=== PATIENT | female | born 1985 | race Caucasian/White ===

== ENCOUNTER 2021-08-27 20:43 | Emergency (ER) | payer OTHER, SELFPAY ==
[2021-08-27 21:12] VITALS: BP 123/80; PULSE 115; RESP 18; TEMP 37.4; O2SAT 100
--- NOTE | 2021-08-27 21:15 | ED.DENTAL ---
HPI - Dental/Oral General Chief complaint: Dental/Oral Stated complaint: fever, dental pain Time Seen by Provider: 08/27/21 21:20 History of Present Illness HPI Narrative: 35-year-old female presents to the emergency room with complaints of left lower molar pain and perimandibular swelling for 2 weeks. Patient states that she has pain with mastication, and is sensitive to hot and cold changes. Patient is also complaining of generalized body aches, and a new onset of fever. Patient denies any URI symptoms chest pain, shortness of breath, abdominal pain, nausea vomiting or diarrhea. Related Data Home Medications Medication Instructions Recorded Confirmed alcohol swabs pad TOPICAL 08/27/21 celecoxib mg 08/27/21 duloxetine mg PO 08/27/21 liraglutide [Victoza 2-Benson] mg SUBCUT 08/27/21 omeprazole 08/27/21 pen needle, diabetic [TRUEplus Pen 08/27/21 08/27/21 Needle] pregabalin 08/27/21 spironolactone 08/27/21 Allergies Allergy/AdvReac Type Severity Reaction Status Date / Time latex Allergy Mild Other Verified 08/27/21 21:43 morphine Allergy Mild Other Verified 08/27/21 21:43 Penicillins Allergy Mild Other Verified 08/27/21 21:43 tramadol Allergy Unknown Stopped Verified 08/27/21 21:43 Breathing Review of Systems Review of Systems: CONSTITUTIONAL: Reports fever and chills EYES: Denies visual changes, redness, or discharge. ENT: Reports lower molar pain, left mandibular pain CARDIOVASCULAR: Denies chest pain, palpitations, or edema. RESPIRATORY: Denies cough or dyspnea. GASTROINTESTINAL: Denies abdominal pain, nausea, vomiting, or diarrhea. GENITOURINARY: Denies dysuria or hematuria. SKIN: Denies rash or itching. MUSCULOSKELETAL: Denies back pain, joint pain, or myalgia. NEUROLOGIC: Denies headache, numbness, dizziness, or weakness. PSYCHIATRIC: Denies anxiety or depression. [facility] Social History Social History Smoking status: Current every day smoker Gender identity (if verbalized by the patient): Female Course Vital Signs Vital signs: Vital Signs Temperature 37.4 C 08/27/21 21:12 Pulse Rate 115 H 08/27/21 21:12 Respiratory Rate 18 08/27/21 21:12 Blood Pressure 123/80 08/27/21 21:12 Pulse Oximetry 100 08/27/21 21:12 Temperature 36.9 C 08/27/21 21:38 Pulse Rate 115 H 08/27/21 21:12 Respiratory Rate 18 08/27/21 21:12 Blood Pressure 123/80 08/27/21 21:12 Pulse Oximetry 100 08/27/21 21:12 Discharge Plan Discharge Clinical Impression: Toothache, Dental caries Patient Disposition: Home, Self-Care Condition: Stable Instructions: Antibiotic Form, Toothache (ED) Prescriptions: New clindamycin HCl 300 mg capsule 300 mg PO Q8H 10 Days Qty: 30 RF: 0 No Action celecoxib 200 mg capsule RF: 0 spironolactone 100 mg tablet RF: 0 omeprazole 40 mg capsule,delayed release(DR/EC) RF: 0 alcohol swabs Pads, Medicated TOPICAL RF: 0 duloxetine 60 mg capsule,delayed release(DR/EC) PO RF: 0 pregabalin 75 mg capsule RF: 0 Victoza 2-Benson 0.6 mg/0.1 mL (18 mg/3 mL) pen injector SUBCUT RF: 0 (DME) pen needle, diabetic [TRUEplus Pen Needle] 32 gauge x 5/32 needle MISCELLANEOUS RF: 0 montelukast [Singulair] 10 mg tablet 10 mg PO DAILY Qty: 10 RF: 0 Follow-up/Referrals: UNKNOWN,DOCTOR [Non-Staff] - Stand Alone Forms: Work/School Release IP Time of Disposition: 21:54
[2021-08-27 21:38] VITALS: TEMP 36.9
[2021-08-27] MEDS: CLINDAMYCIN HCL 150 MG CAP 300 MG PO (22:05)
[2021-08-27 22:16] VITALS: TEMP 36.9
== END 2021-08-27 22:18 | disposition home or self-care (01) ==
PROVIDERS: Emergency Provider Nurse Practitioner Family; PCP Family Medicine
DX: K02.9 Dental caries, unspecified (principal); F17.200 Nicotine dependence, unspecified, uncomplicated
CPT/HCPCS: 73140; 99283; A9270

== ENCOUNTER 2022-07-28 10:45 | Emergency (ER) | payer BC, MEDICAID, SELFPAY ==
--- NOTE | ~2022-07-28 | XR_ITS ---
EXAMINATION: XR ankle RT min 3V INDICATION: Right ankle pain TECHNIQUE: Four views of the right ankle are obtained. COMPARISON: 09/12/2013 FINDINGS: There is soft tissue swelling of ankle. A punctate heterotopic ossification is seen at the distal tip of the lateral malleolus. Bone alignment is normal. A plantar calcaneal enthesophyte is no magaly. There is chronic heterotopic ossification lateral to the cuboid. IMPRESSION: 1. Ankle soft tissue swelling with probable avulsion injury of the lateral malleolus. Reviewed, dictated and finalized at location A. IMPRESSION: 1. Ankle soft tissue swelling with probable avulsion injury of the lateral mall eolus.
[2022-07-28 10:55] VITALS: BP 126/84; PULSE 88; RESP 20; TEMP 36.2; O2SAT 100
[2022-07-28 11:14] VITALS: BP 137/106; O2SAT 100
[2022-07-28 11:16] VITALS: BP 115/90; PULSE 78; RESP 16; O2SAT 100
[2022-07-28] MEDS: SODIUM CHLORIDE 0.9% IV 1,000 ML 999 ML IV CONT (11:43)
[2022-07-28] MEDS: HYDROcodone/acetaminophen (*CRX) 5-325 MG TABLET 1 TAB PO (11:44)
[2022-07-28 11:59] LABS: Basophils Absolute Auto 0.1 K/mm3 (0.0-0.1); Basophils Percent Auto 0.4 % (0.2-1.2); Eosinophils Absolute Auto 0.1 K/mm3 (0-0.3); Eosinophils Percent Auto 0.8 % (0-4.4); Hematocrit 38.6 % (37.0-47.0); Hemoglobin 13.5 g/dL (12.0-15.0); Immature Granulocyte Absolute 0.15 K/mm3 (0.00-0.031); Immature Granulocyte Percent A 0.9 % (0-0.5); Lymphocytes Absolute Auto 2.45 K/mm3 (0.9-3.2); Lymphocytes Percent Auto 14.8 % (18.3-44.2); Mean Corpuscular Hemoglobin 29.3 pg (26-34); Mean Corpuscular Volume 83.9 fl (80-100); Mean Platelet Volume 10.2 fl (7.4-10.4); Monocytes Absolute Auto 1.2 K/mm3 (0.1-0.6); Monocytes Percent Auto 7.2 % (2.6-8.5); Neutrophils Absolute Auto 12.6 K/mm3 (1.3-6.7); Neutrophils Percent Auto 75.9 % (45.5-73.1); Platelet Count Result 331 k/mm3 (150-375); Red Cell Distribution Width 13.1 % (11.5-14.5); White Blood Count 16.6 K/mm3 (4.5-10.0)
[2022-07-28 12:12] LABS: Anion Gap 9 mmol/L (8-16); Blood Urea Nitrogen 13 mg/dL (7-17); Calcium 8.7 mg/dL (8.4-10.2); Carbon Dioxide 27 mmol/L (22-30); Chloride 100 mmol/L (98-107); Estimated CRCL calculation 136 ml/min; Estimated Glomerular Filt Rate > 60; Glucose 107 mg/dL (65-110); Potassium 3.6 mmol/L (3.4-5.0); Sodium 136 mmol/L (137-145)
[2022-07-28 12:16] VITALS: BP 101/68; PULSE 87; RESP 18; O2SAT 100
--- NOTE | 2022-07-28 12:26 | ED.GENADULT ---
HPI - General Adult General Chief complaint: Unspecified Stated complaint: Rash and difficulty weight bearing Time Seen by Provider: 07/28/22 11:12 History of Present Illness HPI narrative: Patient is a 36-year-old female who presents ER with rash. It is located over her feet and hands. On the hands it includes the palms but she does not have sole involvement. She has numbness and tingling that is occurring. She has pain in her feet when she ambulates. This occurred 2 days ago. She reports 4 days ago she began having fever with sore throat. Mild cough. 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 No chest pain or chest pressure. Patient also reports 1 week ago she was seen in ER for some shortness of breath and anxiety and received a steroid injection. Patient denies exposure to ticks. Denies concern for STI. Related Data Home Medications Medication Instructions Recorded Confirmed alcohol swabs pad topical 08/27/21 12/06/21 celecoxib 200 mg capsule mg 08/27/21 12/06/21 duloxetine 60 mg capsule,delayed mg PO 08/27/21 12/06/21 release liraglutide 0.6 mg/0.1 mL (18 mg/3 mg subcut 08/27/21 12/06/21 mL) subcutaneous pen injector ([employer] 2-Benson) omeprazole 40 mg capsule,delayed 08/27/21 12/06/21 release pen needle, diabetic 32 gauge x 08/27/21 12/06/21 (TRUEplus Pen Needle) pregabalin 75 mg capsule 08/27/21 12/06/21 spironolactone 100 mg tablet 08/27/21 12/06/21 albuterol sulfate 90 mcg/actuation g inhalation 12/06/21 12/06/21 aerosol inhaler Allergies Allergy/AdvReac Type Severity Reaction Status Date / Time latex Allergy Mild Other Verified 07/28/22 11:19 morphine Allergy Mild Other Verified 07/28/22 11:19 Penicillins Allergy Mild Other Verified 07/28/22 11:19 tramadol Allergy Unknown Stopped Verified 07/28/22 11:19 Breathing venlafaxine Allergy Confusion Verified 07/28/22 11:21 Review of Systems Review of Systems: All systems reviewed & are unremarkable except as noted in HPI and below Constitutional: Constitutional: Reports chills, Reports fever(s) and Reports weakness ENT: Denies mouth lesions and Reports sore throat Cardiovascular: Cardiovascular: Denies chest pain, Denies radiating jaw, neck or arm pain and Denies palpitations Respiratory: Respiratory: Denies cough, Denies dyspnea and Denies wheezing Gastrointestinal: Gastrointestinal: Denies abdominal pain, Denies nausea and Denies vomiting Integumentary/Breasts: Skin/Breast: Reports pruritus, Reports erythema, Reports rash, Denies skin ulcer and Denies sores Neurologic: Reports tingling PMFSH Past Medical History Medical History (Updated 07/28/22 @ 13:19 by Aryan Mesa MD) Anxiety Asthma GERD (gastroesophageal reflux disease) Surgical History Surgical History (Updated 07/28/22 @ 12:31 by Aryan Mesa MD) No pertinent past surgical history Social History Social History Smoking status: Former smoker Alcohol intake: never Substance use: never Lack of Transportation: No Lack of Food: Never True Current Housing: I Have Housing Concerned About Future Housing: No Difficulty Paying Gas/Electric Bills: No Difficulty Paying for Meds: No Currently Unemployed: No Education: High School Diploma/GED Difficulty w/ Childcare or Family Care: No Living arrangements: with family Gender identity (if verbalized by the patient): Female Exam Narrative: GENERAL: Well-appearing, well-nourished, and in no acute distress. HEAD: Normocephalic, atraumatic. EYES: PERRL and EOMI. ENT: Mucous membranes moist. Mild pharyngeal erythema without ulcerations. CHEST: Clear to auscultation. No respiratory distress. HEART: Regular rate and rhythm. Normal peripheral pulses. EXTREMITIES: Normal range of motion. No edema. SKIN: Warm, dry. Maculopapular rash to the distal arms and legs. Elbow down to h
[2022-07-28 13:15] VITALS: O2SAT 100
== END 2022-07-28 13:59 | disposition home or self-care (01) ==
PROVIDERS: Emergency Provider Emergency Medicine; PCP Nurse Practitioner Women's Health
DX: B08.4 Enteroviral vesicular stomatitis with exanthem (principal); S82.61XA Displaced fracture of lateral malleolus of right fibula, initial encounter for closed fracture; J45.909 Unspecified asthma, uncomplicated; K21.9 Gastro-esophageal reflux disease without esophagitis; Z79.85 Long-term (current) use of injectable non-insulin antidiabetic drugs; Z87.891 Personal history of nicotine dependence; X50.9XXA Other and unspecified overexertion or strenuous movements or postures, initial encounter
CPT/HCPCS: 36415; 73610; 80048; 85025; 96360; 96361; 99283; 99284; A9270; J7030

== ENCOUNTER 2023-12-28 15:00 | Emergency (ER) | payer OTHER, SELFPAY ==
--- NOTE | ~2023-12-28 | XR_ITS ---
XR chest 2V Ordering provider: Aryan Mesa MD History: 38 years Female with . chest pain . Comparison: April 29, 2019 FINDINGS: MEDIASTINUM: The cardiac silhouette is not enlarged. LUNGS: No infiltrates, effusions or pneumothorax. OTHER: No free air under the diaphragm. IMPRESSION: No acute cardiopulmonary pathology. Reviewed, dictated and finalized at location A.
[2023-12-28 15:13] VITALS: BP 138/57; PULSE 107; RESP 21; TEMP 37.1; O2SAT 100
--- NOTE | 2023-12-28 15:20 | ECG_ITS ---
Test Date: 2023-12-28 15:23:37 Measurements Intervals [place] Rate: 108 P: 50 SD: 120 QRS: 11 QRSD: 91 T: 39 QT: 360 QTc: 484 Interpretive Statements SINUS TACHYCARDIA ABNORMAL ECG No previous ECG available for comparison Electronically Signed On 12-28-2023 15:54:40 CDT by Laz Kowalski D.O.
[2023-12-28 15:31] LABS: Basophils Absolute Auto 0.1 K/mm3 (0.0-0.1); Basophils Percent Auto 0.5 % (0.2-1.2); Eosinophils Absolute Auto 0.3 K/mm3 (0-0.3); Eosinophils Percent Auto 2.2 % (0-4.4); Hematocrit 42.3 % (37.0-47.0); Hemoglobin 14.4 g/dL (12.0-15.0); Immature Granulocyte Absolute 0.06 K/mm3 (0.00-0.031); Immature Granulocyte Percent A 0.5 % (0-0.5); Lymphocytes Absolute Auto 3.06 K/mm3 (0.9-3.2); Lymphocytes Percent Auto 23.9 % (18.3-44.2); Mean Corpuscular Volume 85.1 fl (80-100); Mean Platelet Volume 9.6 fl (7.4-10.4); Monocytes Absolute Auto 0.7 K/mm3 (0.1-0.6); Monocytes Percent Auto 5.6 % (2.6-8.5); Neutrophils Absolute Auto 8.6 K/mm3 (1.3-6.7); Neutrophils Percent Auto 67.3 % (45.5-73.1); Platelet Count Result 407 k/mm3 (150-375); Red Blood Count 4.97 M/mm3 (4.2-5.4); Red Cell Distribution Width 13.9 % (11.5-14.5); White Blood Count 12.8 K/mm3 (4.5-10.0)
[2023-12-28 15:43] LABS: INR 0.9; Partial Thromboplastin Time 26.8 Seconds (22.3-36.8); Prothrombin Time 12.6 Seconds (11.1-14.7)
[2023-12-28 15:55] LABS: Alanine Aminotransferase 38 U/L (6-35); Albumin Level 4.6 g/dL (3.5-5.1); Alkaline Phosphatase 115 U/L (38-126); Anion Gap 10 mmol/L (4-12); Aspartate Amino Transferase 33 U/L (14-36); Bilirubin,Total 0.3 mg/dL (0.2-1.3); Blood Urea Nitrogen 15 mg/dL (7-17); Calcium 9.6 mg/dL (8.4-10.2); Carbon Dioxide 29 mmol/L (22-30); Chloride 101 mmol/L (98-107); Estimated CRCL calculation 89 ml/min; Estimated Glomerular Filt Rate > 60; Glucose 117 mg/dL (65-110); Lipase 75 U/L (23-300); Potassium 4.4 mmol/L (3.4-5.0); Sodium 140 mmol/L (137-145)
[2023-12-28] MEDS: ASPIRIN 81 MG CHEWABLE TABLET 324 MG PO (15:57)
[2023-12-28 16:06] LABS: Troponin I < 0.012 ng/mL (0.000-0.034)
[2023-12-28 16:37] LABS: NT Pro B Type Natriuretic Pept < 20 pg/mL (19.9-100)
--- NOTE | 2023-12-28 18:04 | ED.GENADULT ---
HPI - General Adult General Chief complaint: Chest Pain Stated complaint: chest tightness and SOB Time Seen by Provider: 12/28/23 15:13 History of Present Illness HPI narrative: Patient is a 38-year-old female who presents ER with concerns for congestive heart failure. Patient has history of lower extremity media for which she takes spironolactone. She has felt slightly more short of breath today and then developed some chest tightness. This prompted her to call her PCP who recommended she be evaluated in the ER. She reports her heart rate has been slightly higher than usual. No pain with deep breath. No history DVT. No hemoptysis. Denies fevers or chills or sweats. Patient is concerned because her mother had significant congestive heart failure issues. Related Data Home Medications Medication Instructions Recorded Confirmed alcohol swabs pad topical 08/27/21 12/06/21 celecoxib 200 mg capsule mg 08/27/21 12/06/21 duloxetine 60 mg capsule,delayed mg PO 08/27/21 12/06/21 release liraglutide 0.6 mg/0.1 mL (18 mg/3 mg subcut 08/27/21 12/06/21 mL) subcutaneous pen injector (Pounce 2-Benson) omeprazole 40 mg capsule,delayed 08/27/21 12/06/21 release pen needle, diabetic 32 gauge x 08/27/21 12/06/21 (TRUEplus Pen Needle) pregabalin 75 mg capsule 08/27/21 12/06/21 spironolactone 100 mg tablet 08/27/21 12/06/21 albuterol sulfate 90 mcg/actuation g inhalation 12/06/21 12/06/21 aerosol inhaler Allergies Allergy/AdvReac Type Severity Reaction Status Date / Time latex Allergy Mild Other Verified 07/28/22 11:19 morphine Allergy Mild Other Verified 07/28/22 11:19 Penicillins Allergy Mild Other Verified 07/28/22 11:19 tramadol Allergy Unknown Stopped Verified 07/28/22 11:19 Breathing venlafaxine Allergy Confusion Verified 07/28/22 11:21 Review of Systems Review of Systems: All systems reviewed & are unremarkable except as noted in HPI and below Constitutional: Constitutional: Reports no additional constitutional complaints Cardiovascular: Cardiovascular: Reports chest pain, Reports rapid heart rate and Denies radiating jaw, neck or arm pain Respiratory: Respiratory: Reports no additional respiratory complaints, Reports cough and Reports dyspnea Gastrointestinal: Gastrointestinal: Reports no additional gastrointestinal complaints Musculoskeletal: Musculoskeletal: Reports no additional musculoskeletal complaints PMFSH Past Medical History Medical History (Updated 12/28/23 @ 18:24 by Aryan Mesa MD) Anxiety Asthma GERD (gastroesophageal reflux disease) Surgical History Surgical History (Updated 07/28/22 @ 12:31 by Aryan Mesa MD) No pertinent past surgical history Social History Social History Smoking status: Former smoker Alcohol intake: never Substance use: never Lack of Transportation: No Lack of Food: Never True Current Housing: I Have Housing Concerned About Future Housing: No Difficulty Paying Gas/Electric Bills: No Difficulty Paying for Meds: No Currently Unemployed: No Education: High School Diploma/GED Difficulty w/ Childcare or Family Care: No Living arrangements: with family Gender identity (if verbalized by the patient): Female Exam Narrative: GENERAL: Well-appearing, well-nourished, and in no acute distress. HEAD: Normocephalic, atraumatic. ENT: Mucous membranes moist. CHEST: Clear to auscultation. No respiratory distress. HEART: Tachycardic and regular. Normal peripheral pulses. ABDOMEN: Soft, nontender, nondistended. EXTREMITIES: Normal range of motion. 1+ edema. SKIN: Warm, dry, no rash. NEURO: Alert and oriented x3. PSYCH: Normal mood and affect. Course Course Emergency Course: Patient resting comfortably. Feels improved. No significant intervention. Discussed labs and imaging results. Patient thinks she may have had some anxiety about her hea
[2023-12-28 18:50] VITALS: PULSE 98; RESP 18; TEMP 36.7; O2SAT 100
== END 2023-12-28 19:08 | disposition home or self-care (01) ==
PROVIDERS: Emergency Provider Emergency Medicine
DX: R60.0 Localized edema (principal); R00.0 Tachycardia, unspecified; F41.9 Anxiety disorder, unspecified; J45.909 Unspecified asthma, uncomplicated; K21.9 Gastro-esophageal reflux disease without esophagitis
CPT/HCPCS: 36415; 71046; 80053; 83690; 83880; 84484; 85025; 85610; 85730; 93005; 99284; A9270

== ENCOUNTER 2024-02-10 16:22 | Emergency (ER) | payer OTHER, SELFPAY ==
[2024-02-10 16:33] VITALS: BP 116/90; PULSE 105; RESP 20; TEMP 36.4; O2SAT 97
--- NOTE | 2024-02-10 16:39 | ED.DENTAL ---
HPI - Dental/Oral General Chief complaint: Dental/Oral <Myrna Krauseuble, [employer] TEACHER ASSISTANT - Last Filed: 02/10/24 16:43> Stated complaint: Left jaw pain and swelling <Myrna Neri Rissa [employer] TEACHER ASSISTANT - Last Filed: 02/10/24 16:43> Time Seen by Provider: 02/10/24 16:35 <Myrna Neri Rissa [employer] TEACHER ASSISTANT - Last Filed: 02/10/24 16:43> Focused HPI: Patient is a 38-year-old female who presents to the ER with left jaw pain. She reports she had her left lower wisdom tooth extracted approximately a week and half ago. She took a full dose of antibiotics and was healing well. Yesterday patient noticed increased swelling in her L middle and lower jaw. Patient rates her pain at a 2/10 and has been taking Tylenol at home to treat pain. She denies any other medical history bleed to this ER visit. GENERAL: Well-appearing, well-nourished, and in no acute distress. HEAD: Normocephalic, atraumatic. No visible injuries in pt's mouth. CHEST: Clear to auscultation. ?No respiratory distress. HEART: Regular rate and rhythm.? NEURO: ?Alert and oriented x3. Patient screened in triage and initial orders placed.? ?Additional care and disposition to be based upon?diagnostic testing and treatment. <Myrna Krauseuble, [employer] TEACHER ASSISTANT - Last Filed: 02/10/24 16:43> Focused HPI: Patient is a 38-year-old female who presents to the ER with left jaw pain. She reports she had her left lower wisdom tooth extracted about a month ago. She took a full dose of antibiotics and was healing well. Yesterday patient noticed increased swelling in her L middle and lower jaw. Patient rates her pain at a 2/10 and has been taking Tylenol at home to treat pain. She denies any other medical history. GENERAL: Well-appearing, well-nourished, and in no acute distress. HEAD: Normocephalic, atraumatic. No visible injuries in pt's mouth. CHEST: Clear to auscultation. ?No respiratory distress. HEART: Regular rate and rhythm.? NEURO: ?Alert and oriented x3. Patient screened in triage and initial orders placed.? ?Additional care and disposition to be based upon?diagnostic testing and treatment. <Luna Hector PA-C - Last Filed: 02/10/24 18:14> Related Data Home medications: Home Medications Medication Instructions Recorded Confirmed alcohol swabs pad topical 08/27/21 12/06/21 celecoxib 200 mg capsule mg 08/27/21 12/06/21 duloxetine 60 mg capsule,delayed mg PO 08/27/21 12/06/21 release liraglutide 0.6 mg/0.1 mL (18 mg/3 mg subcut 08/27/21 12/06/21 mL) subcutaneous pen injector ([employer]ocomp 2-Benson) omeprazole 40 mg capsule,delayed 08/27/21 12/06/21 release pen needle, diabetic 32 gauge x 08/27/21 12/06/21 (TRUEplus Pen Needle) pregabalin 75 mg capsule 08/27/21 12/06/21 spironolactone 100 mg tablet 08/27/21 12/06/21 albuterol sulfate 90 mcg/actuation g inhalation 12/06/21 12/06/21 aerosol inhaler <Myrna Kwok APRN - Last Filed: 02/10/24 16:43> Allergies/adverse reactions: Allergies Allergy/AdvReac Type Severity Reaction Status Date / Time latex Allergy Mild Other Verified 02/10/24 16:23 morphine Allergy Mild Other Verified 02/10/24 16:23 Penicillins Allergy Mild Other Verified 02/10/24 16:23 tramadol Allergy Unknown Stopped Verified 02/10/24 16:23 Breathing venlafaxine Allergy Confusion Verified 02/10/24 16:23 <Myrna Kwok APRN - Last Filed: 02/10/24 16:43> Review of Systems Review of Systems: CONSTITUTIONAL: Denies fever ENT: Reports dentalgia <Luna Hector PA-C - Last Filed: 02/10/24 18:14> All systems reviewed & are unremarkable except as noted in HPI and below <Luna Hector PA-C - Last Filed: 02/10/24 18:14> [facility] Past Medical History Medical History: Medical History (Updated 02/10/24 @ 18:11 by Luna Hector PA-C) Anxiety Asthma GERD (gastroesophageal reflux disease) <Myrna Kwok APRN - Last Filed: 02/10/24 16:43> Surgical History Surgical History: Surgical History (Updated 07/28/22 @ 12:31 by Aryan Mesa MD) No pertinent past surgical history <Myrna Kwok APRN - Last Filed: 02/10/24 16:43> Social History Social History: Social History Smoking status: Former smoker Alcohol intake: never Substance use: never Lack of Transportation: No Lack of Food: Never True Current Housing: I Have Housing Concerned About Future Housing: No Difficulty Paying Gas/Electric Bills: No Difficulty Paying for Meds: No Currently Unemployed: No Education: High School Diploma/GED Difficulty w/ Childcare or Family Care: No Living arrangements: with family Gender identity (if verbalized by the patient): Female <Myrna Kwok APRN - Last Filed: 02/10/24 16:43> Exam Narrative: GENERAL: Well-appearing, well-nourished, and in no acute distress. HEAD: Normocephalic, atraumatic. EYES: EOMI. ENT: Nares clear, no rhinorrhea or epistaxis. Mucous membranes moist. Oropharynx without tonsillar hypertrophy exudate or other lesions. No trismus. Floor of mouth is soft NECK: Supple. Tender left submandibular adenopathy CHEST: No respiratory distress. HEART: Regular rate EXTREMITIES: Normal range of motion. No edema. SKIN: Warm, dry, no rash. NEURO: No focal deficits. Alert and oriented x3. PSYCH: Normal mood and affect <Luna eHctor PA-C - Last Filed: 02/10/24 18:14> Course Course Emergency Course: Patient agrees with plan of care <Luna Hector PA-C - Last Filed: 02/10/24 18:14> Vital Signs Vital signs: Vital Signs Temperature 97.6 F 02/10/24 16:33 Pulse Rate 105 H 02/10/24 16:33 Respiratory Rate 20 02/10/24 16:33 Blood Pressure 116/90 02/10/24 16:33 Pulse Oximetry 97 02/10/24 16:33 Oxygen Delivery Room Air 02/10/24 16:33 Temperature 97.6 F 02/10/24 16:33 Pulse Rate 105 H 02/10/24 16:33 Respiratory Rate 20 02/10/24 16:33 Blood Pressure 116/90 02/10/24 16:33 Pulse Oximetry 97 02/10/24 16:33 Oxygen Delivery Room Air 02/10/24 16:33 <Myrna Kwok, JOSH - Last Filed: 02/10/24 16:43> Vital Signs Temperature 97.6 F 02/10/24 16:33 Pulse Rate 105 H 02/10/24 16:33 Respiratory Rate 20 02/10/24 16:33 Blood Pressure 116/90 02/10/24 16:33 Pulse Oximetry 97 02/10/24 16:33 Oxygen Delivery Room Air 02/10/24 16:33 Temperature 97.6 F 02/10/24 16:33 Pulse Rate 105 H 02/10/24 16:33 Respiratory Rate 20 02/10/24 16:33 Blood Pressure 116/90 02/10/24 16:33 Pulse Oximetry 97 02/10/24 16:33 Oxygen Delivery Room Air 02/10/24 16:33 <Luna Hector PA-C - Last Filed: 02/10/24 18:14> MDM - Dental/Oral MDM Narrative Medical decision making narrative: Patient presents to the ER for dental pain ongoing over the last couple of days. She is afebrile and nontoxic appearing. No obvious abscess on exam. No trismus. Floor of mouth is soft. Patient will be started on oral antibiotics and was instructed to call her dentist for thing in the morning <Luna Hector PA-C - Last Filed: 02/10/24 18:14> Differential Diagnosis Differential diagnosis: Likely dental caries, toothache and dental abscess <Luna Hector PA-C - Last Filed: 02/10/24 18:14> Critical Care Time Critical Care Time Critical Care Time: No <Luna Hector PA-C - Last Filed: 02/10/24 18:14> Discharge Plan Discharge Clinical Impression: Toothache <Myrna Kwok APRN - Last Filed: 02/10/24 16:43> Patient Disposition: Home, Self-Care <Myrna Kwok APRN - Last Filed: 02/10/24 16:43> Condition: Stable <Myrna Kwok APRN - Last Filed: 02/10/24 16:43> Instructions: Antibiotic Form, Toothache (ED) <Myrna Kwok APRN - Last Filed: 02/10/24 16:43> Additional Instructions: Return to the Emergency Department if you experience fever >101, increasing swelling and redness, or any other symptoms that are concerning to you Take antibiotic as prescribed. Tylenol or Ibuprofen as needed for pain. Follow up with your dentist <Myrna Kwok APRN - Last Filed: 02/10/24 16:43> Prescriptions: New clindamycin HCl 300 mg capsule 300 mg PO Q6H 7 Days Qty: 28 0RF No Action albuterol sulfate 90 mcg/actuation HFA aerosol inhaler inhalation mupirocin 2 % ointment 1 applic topical BID Qty: 22 3RF celecoxib 200 mg capsule spironolactone 100 mg tablet omeprazole 40 mg capsule,delayed release(DR/EC) alcohol swabs Pads, Medicated TOPICAL duloxetine 60 mg capsule,delayed release(DR/EC) PO pregabalin 75 mg capsule Victoza 2-Benson 0.6 mg/0.1 mL (18 mg/3 mL) pen injector SUBCUT (DME) pen needle, diabetic [TRUEplus Pen Needle] 32 gauge x 5/32 needle MISCELLANEOUS montelukast [Singulair] 10 mg tablet 10 mg PO DAILY Qty: 10 0RF hydrocodone-acetaminophen 5-325 mg tablet 1 tablet PO Q6H PRN (Reason: pain) Qty: 10 0RF <Myrna Kwok APRN - Last Filed: 02/10/24 16:43> Follow-up/Referrals: PHYSICIAN NOT ON STAFF,NONSTAFF [Non-Staff] - <Myrna Kwok APRN - Last Filed: 02/10/24 16:43> Stand Alone Forms: Work/School Release IP <Myrna Kwok APRN - Last Filed: 02/10/24 16:43>
[2024-02-10] MEDS: CLINDAMYCIN HCL 150 MG CAP 300 MG PO (18:35)
== END 2024-02-10 18:44 | disposition home or self-care (01) ==
PROVIDERS: Emergency Provider Physician Assistant
DX: K08.89 Other specified disorders of teeth and supporting structures (principal); F41.9 Anxiety disorder, unspecified; J45.909 Unspecified asthma, uncomplicated; K21.9 Gastro-esophageal reflux disease without esophagitis
CPT/HCPCS: 99283; A9270

== ENCOUNTER 2024-10-09 07:53 | Outpatient (CLI) | payer BC, SELFPAY ==
--- NOTE | ~2024-10-09 | MR_ITS ---
MRI of the cervical spine Clinical History: Radiculopathy Technique: Axial T2-weighted and gradient images, and sagittal T1-weighted, T2-weighted, and STIR alex ges were acquired. Findings: No fracture or subluxation seen in the cervical spine. There is mild reversal of the normal cervical lordosis. No bone marrow signal abnormality seen. At C2-C3, C3-C4, C4-C5 and C5-C6, there is no significant disc bulge or herniation. There are mild fa cet joint degenerative changes the levels. No spinal canal stenosis or neural foraminal narrowing at these levels. At C6-C7, there is disc osteophyte complex which minimally flattens the ventral cord. Neural foramina are preserved. No abnormal signal seen in the spinal cord. Paravertebral soft tissues are unremarkable. Impression: [id number] degenerative spondylosis at C6-C7, as detailed above. Reviewed, dictated and finalized at [facility]. Impression: [id number] degenerative spondylosis at C6-C7, as detailed above.
== END 2024-10-09 07:54 | disposition home or self-care (01) ==
LOC: MICIMG 07:54
PROVIDERS: PCP Nurse Practitioner Family; Visit Provider Nurse Practitioner Family
DX: M47.892 Other spondylosis, cervical region (principal)
CPT/HCPCS: 72141